=== PATIENT | male | born 1960 | race Hispanic/Latino ===

== ENCOUNTER 2017-06-25 15:46 | Inpatient (IN) | payer SELFPAY ==
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
[2017-06-25 16:46] LABS: Basophils % (Auto) 0.5 % (0.0-1.8); Eosinophils % (Auto) 0.3 % (0.0-4.3); Hematocrit 30.5 % (35.5-45.6); Hemoglobin 10.4 gm/dl (11.8-15.2); Mean Corpuscular HGB Conc 34 % (32-34); Mean Corpuscular Hemoglobin 32 pg (28-32); Mean Corpuscular Volume 93 fl (84-94); Platelet Count 219 K/mm3 (140-440); Red Blood Count 3.26 M/mm3 (3.65-5.03); Red Cell Distribution Width 13.5 % (13.2-15.2); White Blood Count 5.3 K/mm3 (4.5-11.0)
[2017-06-25 17:03] LABS: Anion Gap 14 mmol/L; BUN/Creatinine Ratio 16.66; Blood Urea Nitrogen 5 mg/dL (9-20); Calcium 8.1 mg/dL (8.4-10.2); Carbon Dioxide 28 mmol/L (22-30); Glucose 301 mg/dL (75-100); Potassium 3.2 mmol/L (3.6-5.0); Sodium 136 mmol/L (137-145)
[2017-06-25 17:10] LABS: Creatine Kinase 44 units/L (55-170)
[2017-06-25] MEDS ORDERED: D50W (25GM) IV PRN (20:10)
--- NOTE | 2017-06-25 21:26 | History and Physical Report ---
History of Present Illness Date of examination: 06/25/17 Date of admission: 06/25/17 18:41 Chief complaint: Bilateral lower extremities pain, severely elevated blood sugar. History of present illness: Patient is a 56-year-old homeless man who was having severe bilateral lower extremities pain. Burning in nature, moderate to severe in intensity. No known aggravating or relieving factor. A third republican called EMS who on arrival at the scene found the patient sitting on the curb. Blood sugar was found to be in the 300s. Patient was hypotensive with blood pressure in the 80s to the 90s. Feces were found on his clothes. Patient was brought to the emergency department where patient was found to be very unkempt with feces all over his body, blood sugar was the 300s. Patient was commenced on consistently wider diet, and iv hydration. Insulin sliding scale. Patient stated that he never had a history of diabetes before now. However his mother has a history of diabetes mellitus. Patient denies any fever or chills. No abdominal pain or nausea. no vomiting. Denies any chest pain, orthopnea paroxysmal nocturnal dyspnea.. Past History Past Medical History: hypertension Past Surgical History: No surgical history Social history: smoking, other (homeless). denies: alcohol abuse, prescription drug abuse Family history: diabetes Medications and Allergies Allergies Allergy/AdvReac Type Severity Reaction Status Date / Time No Known Allergies Allergy Verified 06/25/17 15:59 Home Medications Medication Instructions Recorded Confirmed Last Taken Type No Known Home Medications [No 06/25/17 06/25/17 Unknown History Reported Home Medications] Active Meds: Active Medications Aspirin (Aspirin) 325 mg PO QDAY GLADYS Dextrose (D50w (25gm)) 50 ml IV PRN PRN PRN Reason: Hypoglycemia Enoxaparin Sodium (Lovenox) 40 mg SUB-Q QDAY@2200 GLADYS Gabapentin (Neurontin) 100 mg PO Q8HR GLADYS Potassium Chloride (Kcl 10meq/100ml) 10 meq in 100 mls @ 100 mls/hr IV Q1H GLADYS Stop: 06/26/17 00:59 Insulin Aspart (Novolog) 0 units SUB-Q ACHS GLADYS PRN Reason: Protocol Insulin Detemir (Levemir) 10 units SUB-Q QHS GLADYS Review of systems Constitutional: Well Nouridhed and Well developed. Head: NC/ AT Eyes: Denies any visual impairments. No discharge from the eyes Nose: Denies any rhinorrhea or epistaxis Throats: Denies any post nasal drainage. Ears: Denies any hearing deficits Cardiovascular system: Denies any chest pain, shortness of breath, orthopnea, paroxysmal nocturnal dyspnea, or palpitation. Respiratory system: Denies any cough, difficulty breathing, wheezing, pleuritic chest pain, Gastrointestinal system: Denies any abdominal pain, nausea vomiting, hematemesis or melena. Neurological system: Denies any headache, slurred speech, facial droop, lateralizing weakness Genitalia system: Denies any dysuria, urinary frequency or urgency, urethral discharge Skin: No rashes, hyperpigmented spots. Hematological: Denies any cervical tenderness hemorrhages or petechia. Immunological: Denies any multiple septic spots, Lymphatic: Denies any generalized lymphadenopathy. Endocrine: Denies any polyuria, polydipsia, polyphagia. No heat or cold intolerance. Musculoskeletal system: Pain in both lower extremities. No swelling swelling. Psych: No visual, tactile, auditory or hallucination Exam - Constitutional Vitals: Temp Pulse Resp BP Pulse Ox 97.8 F 86 16 126/75 99 06/25/17 16:13 06/25/17 16:13 06/25/17 18:09 06/25/17 18:30 06/25/17 18:30 General appearance: Present: disheveled, malodorous - EENT Eyes: Present: PERRL - Neck Neck: Present: supple, normal ROM - Respiratory Respiratory effort: normal Respiratory: bilateral: CTA - Cardiovascular Heart Sounds: Present: S1 & S2. Absent: rub, click - Extremities Extremities: pulses symmetrical, No edema Peripheral Pulses: within normal limits - Abdominal General gastrointestinal: Present: soft, non-tender, non-distended, normal bowel sounds - Integumentary Integumentary: Present: clear, warm, dry - Musculoskeletal Musculoskeletal: gait normal, strength equal bilaterally - Psychiatric Psychiatric: appropriate mood/affect, intact judgment & insight - Neurologic Neurologic: CNII-XII intact, moves all extremities Results - Labs CBC & Chem 7: 06/25/17 16:27 06/25/17 16:27 Labs: Abnormal lab results 06/25/17 Range/Units 21:01 POC Glucose 302 H (70-105) - Imaging and Cardiology EKG: report reviewed Assessment and Plan - Diabetes mellitus new-onset - Diabetes peripheral neuropathy - Hypokalemia with a potassium of 3.2 - Anemia - Tobacco use disorder Plan Admit patient to MedSurg Commence worsening daughter 15 in our Obtain urinalysis Commence Sliding-scale insulin, with a basal insulin. Consistent collided diet Commence Gabapentin Supplement potassium Anemia workup Tobacco cessation counseling DVT prophylaxis with Lovenox, gentle accident with Pepcid Spent over 32 minutes during this admission in direct patient care, review of laboratory and radiological data, especially of management plan to the patient
[2017-06-25] MEDS: LOVENOX SUB-Q SCH (21:42)
[2017-06-25] MEDS: NEURONTIN PO SCH (21:42)
[2017-06-25] MEDS: NOVOLOG SUB-Q SCH (21:42)
[2017-06-25] MEDS: KCL 10MEQ/100ML 10 MEQ/100 ML BAG IV SCH (23:00)
[2017-06-25] MEDS: LEVEMIR SUB-Q SCH (23:06)
[2017-06-25] MEDS: ASPIRIN PO SCH (23:25)
[2017-06-26] MEDS: KCL 10MEQ/100ML 10 MEQ/100 ML BAG IV SCH ×2 (00:43→01:54)
[2017-06-26 01:05] LABS: INR 1.06 (0.87-1.13)
[2017-06-26 01:16] LABS: Alanine Aminotransferase 17 units/L (7-56); Albumin 3.3 g/dL (3.9-5); Albumin/Globulin Ratio 1.3 %; Alkaline Phosphatase 101 units/L (35-129); Anion Gap 16 mmol/L; BUN/Creatinine Ratio 13.33; Blood Urea Nitrogen 4 mg/dL (9-20); Calcium 8.8 mg/dL (8.4-10.2); Carbon Dioxide 28 mmol/L (22-30); Chloride 94.7 mmol/L (98-107); Glucose 114 mg/dL (75-100); Potassium 3.3 mmol/L (3.6-5.0); Sodium 135 mmol/L (137-145); Total Protein 5.8 g/dL (6.3-8.2)
[2017-06-26 03:10] LABS: Iron 69 ug/dL (49-181); Total Iron Binding Capacity 155 mcg/dL (250-450)
[2017-06-26] MEDS: NEURONTIN PO SCH ×3 (05:45→23:10)
[2017-06-26 06:15] LABS: Magnesium 1.6 mg/dL (1.7-2.3); Phosphorous 2.7 mg/dL (2.5-4.5)
[2017-06-26] MEDS: NOVOLOG SUB-Q SCH ×4 (07:27→22:46)
[2017-06-26] MEDS ORDERED: K-DUR PO ONE (09:00)
[2017-06-26] MEDS ORDERED: MAGNESIUM SULFATE IV ONE (09:00)
[2017-06-26] MEDS: ASPIRIN PO SCH (09:12)
[2017-06-26 11:22] LABS: Urine Drugs of Abuse Note Disclamer
[2017-06-26 11:38] LABS: Bacteria,Urine 1+ /HPF (Negative); Bilirubin,Urine NEG (Negative); Blood,Urine NEG (Negative); Ketones,Urine NEG (Negative); Leukocyte Esterase,Urine NEG (Negative); Mucus,Urine FEW /HPF; Nitrite,Urine NEG (Negative); Protein,Urine <15 mg/dL mg/dL (Negative); RBC,Urine < 1.0 /HPF (0.0-6.0); WBC,Urine < 1.0 /HPF (0.0-6.0)
--- NOTE | 2017-06-26 13:05 | Progress Note ---
Assessment and Plan Assessment and plan: Patient is a 56-year-old homeless man who was having severe bilateral lower extremities pain. Burning in nature, moderate to severe in intensity. No known aggravating or relieving factor. A third libertarian called EMS who on arrival at the scene found the patient sitting on the curb. Blood sugar was found to be in the 300s. Patient was hypotensive with blood pressure in the 80s to the 90s. Feces were found on his clothes. Patient was brought to the emergency department where patient was found to be very unkempt with feces all over his body, blood sugar was the 300s. Patient was commenced on consistently wider diet, and iv hydration. Insulin sliding scale. Patient stated that he never had a history of diabetes before now. However his mother has a history of diabetes mellitus. Patient denies any fever or chills. No abdominal pain or nausea. no vomiting. Denies any chest pain, orthopnea paroxysmal nocturnal dyspnea.. Diabetes mellitus poorly controlled-possible new onset -continue insuline therapy, await A1C, Diabetic education, No acei at this time secondary to Low BP Diabetic peripheral neuropathy Continue gabapentin Hypokalemia replace Magnesium REPLACE Anemia of chronic disease States he had colonoscopy at age 51, unsure of results, denies hx of CA. check iron studies Tobacco dependence 15 minutes of counselling provided Severe protein calorie malnutrition Nutrition consult Anorexic Nutrition consult as noted above DVT/GI prophy Case management for placement in AM History Interval history: Patient seen and examined in no acute distress reports remarkable improvement and bilateral upper extremity pain. Denies any nausea vomiting or diarrhea Hospitalist Physical - Physical exam Narrative exam: VITAL SIGNS: Reviewed. GENERAL: The patient appeared markedly malnourished and anorexic.. Vital signs as documented. HEAD: No signs of head trauma. Temporal wasting EYES: Pupils are equal. Extraocular motions intact. EARS: Hearing grossly intact. MOUTH: Oropharynx is normal. NECK: No adenopathy, no JVD. CHEST: Chest with clear breath sounds bilaterally. No wheezes, rales, or rhonchi. CARDIAC: Regular rate and rhythm. S1 and S2, without murmurs, gallops, or rubs. VASCULAR: No Edema. Peripheral pulses normal and equal in all extremities. ABDOMEN: Soft, without detectable tenderness. No sign of distention. No rebound or guarding, and no masses palpated. Bowel Sounds normal. MUSCULOSKELETAL: Good range of motion of all major joints. Extremities without clubbing, cyanosis or edema. NEUROLOGIC EXAM: Alert and oriented x 3. No focal sensory or strength deficits. Speech normal. Follows commands. PSYCHIATRIC: Mood normal. SKIN: Chronic healed punctated wounds. - Constitutional Vitals: Temp Pulse Resp BP Pulse Ox 97.8 F 70 18 97/52 100 06/26/17 08:00 06/26/17 08:00 06/26/17 08:00 06/26/17 08:00 06/26/17 08:00 General appearance: Present: disheveled, malodorous Results - Labs CBC & Chem 7: 06/25/17 16:27 06/26/17 00:13 Labs: Laboratory Last Values WBC 5.3 K/mm3 (4.5-11.0) 06/25/17 16:27 RBC 3.26 M/mm3 (3.65-5.03) L 06/25/17 16:27 Hgb 10.4 gm/dl (11.8-15.2) L 06/25/17 16:27 Hct 30.5 % (35.5-45.6) L 06/25/17 16:27 MCV 93 fl (84-94) 06/25/17 16:27 MCH 32 pg (28-32) 06/25/17 16:27 MCHC 34 % (32-34) 06/25/17 16:27 RDW 13.5 % (13.2-15.2) 06/25/17 16:27 Plt Count 219 K/mm3 (140-440) 06/25/17 16:27 Lymph % (Auto) 32.9 % (13.4-35.0) 06/25/17 16:27 [place] % (Auto) 7.6 % (0.0-7.3) H 06/25/17 16:27 Eos % (Auto) 0.3 % (0.0-4.3) 06/25/17 16:27 Baso % (Auto) 0.5 % (0.0-1.8) 06/25/17 16:27 Lymph # 1.7 K/mm3 (1.2-5.4) 06/25/17 16:27 [place] # 0.4 K/mm3 (0.0-0.8) 06/25/17 16:27 Eos # 0.0 K/mm3 (0.0-0.4) 06/25/17 16:27 Baso # 0.0 K/mm3 (0.0-0.1) 06/25/17 16:27 Seg Neutrophils % 58.7 % (40.0-70.0) 06/25/17 16:27 Seg Neutrophils # 3.1 K/mm3 (1.8-7.7) 06/25/17 16:27 PT 14.4 Sec. (12.2-14.9) 06/26/17 00:13 INR 1.06 (0.87-1.13) 06/26/17 00:13 VBG pH 7.422 (7.320-7.420) H 06/25/17 16:27 Sodium 135 mmol/L (137-145) L 06/26/17 00:13 Potassium 3.3 mmol/L (3.6-5.0) L 06/26/17 00:13 Chloride 94.7 mmol/L (98-107) L 06/26/17 00:13 Carbon Dioxide 28 mmol/L (22-30) 06/26/17 00:13 Anion Gap 16 mmol/L 06/26/17 00:13 BUN 4 mg/dL (9-20) L 06/26/17 00:13 Creatinine 0.3 mg/dL (0.8-1.5) L 06/26/17 00:13 Estimated GFR > 60 ml/min 06/26/17 00:13 BUN/Creatinine Ratio 13.33 % 06/26/17 00:13 Glucose 114 mg/dL (75-100) H 06/26/17 00:13 POC Glucose 232 (70-105) H 06/26/17 11:26 Hemoglobin A1c 11.2 % (4-6) H 06/25/17 16:27 Lactic Acid 2.00 mmol/L (0.7-2.0) 06/26/17 08:39 Calcium 8.8 mg/dL (8.4-10.2) 06/26/17 00:13 Phosphorus 2.70 mg/dL (2.5-4.5) 06/26/17 05:22 Magnesium 1.60 mg/dL (1.7-2.3) L 06/26/17 05:22 Iron 69 ug/dL (49-181) 06/26/17 00:13 TIBC 155 mcg/dL (250-450) L 06/26/17 00:13 Total Bilirubin 0.40 mg/dL (0.1-1.2) 06/26/17 00:13 AST 16 units/L (5-40) 06/26/17 00:13 ALT 17 units/L (7-56) 06/26/17 00:13 Alkaline Phosphatase 101 units/L (35-129) 06/26/17 00:13 Total Creatine Kinase 44 units/L (55-170) L 06/25/17 16:27 CK-MB (CK-2) 2.0 ng/mL (0.0-4.0) 06/25/17 16:27 CK-MB (CK-2) Rel Index 4.5 (0-4) H 06/25/17 16:27 Troponin T < 0.010 ng/mL (0.00-0.029) 06/25/17 16:27 Total Protein 5.8 g/dL (6.3-8.2) L 06/26/17 00:13 Albumin 3.3 g/dL (3.9-5) L 06/26/17 00:13 Albumin/Globulin Ratio 1.3 % 06/26/17 00:13 Vitamin B12 248.6 pg/mL (211-911) 06/26/17 00:13 Urine Color Yellow (Yellow) 06/26/17 11:10 Urine Turbidity Clear (Clear) 06/26/17 11:10 Urine pH 6.0 (5.0-7.0) 06/26/17 11:[address] 1.010 (1.003-1.030) 06/26/17 11:10 Urine Protein <15 mg/dl mg/dL (Negative) 06/26/17 11:10 Urine Glucose (UA) >=500 mg/dL (Negative) 06/26/17 11:10 Urine Ketones Neg mg/dL (Negative) 06/26/17 11:10 Urine Blood Neg (Negative) 06/26/17 11:10 Urine Nitrite Neg (Negative) 06/26/17 11:10 Urine Bilirubin Neg (Negative) 06/26/17 11:10 Urine Urobilinogen 4.0 mg/dL (<2.0) 06/26/17 11:10 Ur Leukocyte Esterase Neg (Negative) 06/26/17 11:10 Urine WBC (Auto) < 1.0 /HPF (0.0-6.0) 06/26/17 11:10 Urine RBC (Auto) < 1.0 /HPF (0.0-6.0) 06/26/17 11:10 Urine Bacteria (Auto) 1+ /HPF (Negative) 06/26/17 11:10 Urine Mucus Few /HPF 06/26/17 11:10 Urine Opiates Screen Presumptive negative 06/26/17 11:10 Urine Methadone Screen Presumptive negative 06/26/17 11:10 Ur Barbiturates Screen Presumptive negative 06/26/17 11:10 Ur Phencyclidine Scrn Presumptive negative 06/26/17 11:10 Ur Amphetamines Screen Presumptive negative 06/26/17 11:10 U Benzodiazepines Scrn Presumptive negative 06/26/17 11:10 Urine Cocaine Screen Presumptive negative 06/26/17 11:10 U Marijuana (THC) Screen Presumptive negative 06/26/17 11:10 Drugs of Abuse Note Disclamer 06/26/17 11:10 Plasma/Serum Alcohol < 0.01 gm% (0-0.07) 06/25/17 16:27
[2017-06-26 19:13] LABS: Basophils % (Auto) 0.6 % (0.0-1.8); Eosinophils % (Auto) 1.6 % (0.0-4.3); Hematocrit 30.4 % (35.5-45.6); Hemoglobin 10.4 gm/dl (11.8-15.2); Mean Corpuscular HGB Conc 34 % (32-34); Mean Corpuscular Hemoglobin 32 pg (28-32); Mean Corpuscular Volume 94 fl (84-94); Platelet Count 217 K/mm3 (140-440); Red Blood Count 3.22 M/mm3 (3.65-5.03); White Blood Count 4.7 K/mm3 (4.5-11.0)
[2017-06-26 19:30] LABS: INR 1.06 (0.87-1.13)
[2017-06-26 19:38] LABS: Alanine Aminotransferase 15 units/L (7-56); Albumin 3.2 g/dL (3.9-5); Albumin/Globulin Ratio 1.4 %; Alkaline Phosphatase 92 units/L (35-129); Anion Gap 15 mmol/L; Blood Urea Nitrogen 3 mg/dL (9-20); Calcium 8.6 mg/dL (8.4-10.2); Carbon Dioxide 28 mmol/L (22-30); Chloride 99.8 mmol/L (98-107); Glucose 152 mg/dL (75-100); Sodium 139 mmol/L (137-145); Total Protein 5.5 g/dL (6.3-8.2)
[2017-06-26 19:57] LABS: Potassium 4.2 mmol/L (3.6-5.0)
[2017-06-26] MEDS: LEVEMIR SUB-Q SCH (23:10)
[2017-06-26] MEDS: LOVENOX SUB-Q SCH (23:11)
--- NOTE | 2017-06-27 03:46 | Admit Criteria Form ---
Admission Criteria Documentation: DIABETES Clinical Indications for Admission to Inpatient Care (Place 'X' for any and all applicable criteria): Admission is indicated by presence of ALL (if I & II) or ANY ONE (if III or IV) of the following (1)(2)(3)(4): [X]I. Diabetes is uncontrolled as indicated by ANY ONE of the following: [ ]a) Diabetic ketoacidosis as indicated by ALL of the following (8): [ ]i) Hyperglycemia (eg, plasma glucose greater than 200 mg/ dL (11.1 mmol/L)) [ ]ii) Acidosis (eg, arterial pH less than 7.30, serum bicarbonate level less than 15 mEq/L (mmol/L)) [ ]iii) Moderate ketonuria or ketonemia [ ]b) Hyperglycemic hyperosmolar state as indicated by ALL of the following(9)(10): [ ]i) Neurologic dysfunction (eg, stupor, coma, hemiparesis , seizure)(13) [ ]ii) Plasma glucose greater than 600 mg/dL (33.3 mmol/L) [ ]iii) Serum osmolality greater than 320 mOsm/kg (mmol/kg) [X]c) Severe signs or symptoms secondary to hyperglycemia indicated by ANY ONE of the following: [ ]i) Altered mental status(10) [X]ii) Significant hypovolemia or dehydration [ ]iii) Intractable nausea or vomiting [ ]iv) Unexplained fever or severe infection [ ]v) Severe electrolyte abnormality (eg, hypokalemia, hyperkalemia, hypernatremia) [X]II. Management at other levels of care (Also use Diabetes: Observation Care as appropriate) is not feasible because of ANY ONE of the following: [ ]a) Condition was not adequately corrected with treatment at other levels of care. [X]b) Treatment at other levels of care is not appropriate because of condition severity (eg, hyperosmolar coma). [ ]III. Contraindications and/or Inappropriate clinical situations for Observational Care in patients with Diabetes, when ANY ONE of the following is required: [ ]a) Patient require specific diagnostic workup or therapeutic intervention 22 [ ]b) Patient with abnormal vital signs or altered mental status 23 [ ]IV. General contraindications and/or Inappropriate clinical situations for Observational Care in patients with Diabetes, when ANY ONE of the following is required: [ ]a) Prediction of prolongation of LOS based on ANY ONE of the following may be considered as a contraindication for observational care 2, 3, 4, 5, 6, 7, 8, 9, 10, 11 [ ]i) Age > 65 yrs. [ ]ii) Patient arriving by ambulance [ ]iii) Patient with high acuity [ ]iv) Patient requiring vital sign monitoring [ ]v) Patient on IV medication [ ]b) Systolic blood pressures 180mmHg 3,12 [ ]c) Patient with altered mental status including delirium and other alteration of consciousness, (3) [ ]d) Patient whose discharge disposition will be to a [facility] home or rehabilitation home should not be managed in Emergency Department Observation Unit. CMS rule requires 3 days hospital stay before such placement.3,13 [ ]e) Patient with failure to thrive due to broad array of etiologies 3,16,17 [ ]f) Inability to ambulate 3,14 Extended stay beyond goal length of stay may be needed for(3)(20): [ ]a) Treatment of precipitating causes [ ]b) Development of hypoglycemia [ ]c) Complications of treatment [ ]d) Complications of decompensated diabetes (eg, acute gastric dilatation, persistent metabolic or neurologic derangement) [ ]e) Active Comorbidities [ ]f) Older patients( 65 years or older) The original [employer] content created by [employer] has been revised. The portions of the content which have been revised are identified through the use of italic text or in bold,and [facility] has neither reviewed nor approved the modified material. All other unmodified content is copyright [employer]. Please see references footnoted in the original [facility] edition 2016 Admission Criteria Met: Yes
[2017-06-27] MEDS: NEURONTIN PO SCH ×2 (05:51→15:07)
--- NOTE | 2017-06-27 07:27 | Discharge Summary ---
Providers - Providers Date of Admission: 06/25/17 18:41 Date of discharge: 06/27/17 Attending physician: BERNABE DUNAWAY MD 06/26/17 13:09 Consult to Dietitian/Nutrition [CONS] Routine Physician Instructions: malnurished, new diagnosis of DM Reason For Exam: Reason for Consult: Diet education Primary care physician: [employer] Hospitalization Reason for admission: Uncontrolled DM Condition: Stable Hospital course: Patient is a 56-year-old homeless man who was having severe bilateral lower extremities pain. Burning in nature, moderate to severe in intensity. No known aggravating or relieving factor. A third green party called EMS who on arrival at the scene found the patient sitting on the curb. Blood sugar was found to be in the 300s. Patient was hypotensive with blood pressure in the 80s to the 90s. Feces were found on his clothes. Patient was brought to the emergency department where patient was found to be very unkempt with feces all over his body, blood sugar was the 300s. Patient was commenced on consistently wider diet, and iv hydration. Insulin sliding scale. Patient stated that he never had a history of diabetes before now. However his mother has a history of diabetes mellitus. Patient denies any fever or chills. No abdominal pain or nausea. no vomiting. Denies any chest pain, orthopnea paroxysmal nocturnal dyspnea. Patient is on insulin therapy and once he returned home was greater than 11. His electrolytes were replaced with did have extensive discussion about tobacco cessation is currently stable at this time for discharge we did discuss extensively diabetic management side effects of medications and also yearly required exams. He verbalized understanding. I did also recommend a follow-up with GI once established we will able to set him up with a mcc. Discharge diagnosis: * New onset diabetes mellitus * Diabetic peripheral neuropathy * Hypokalemia * HypoMagnesium * Anemia of chronic disease * Tobacco dependence * Severe protein calorie malnutrition * Anorexic Disposition: [id number] TO HOME OR SELFCARE Time spent for discharge: 35 mins Core Measure Documentation - Palliative Care Palliative Care/ Comfort Measures: Not Applicable - Core Measures Any of the following diagnoses?: none - VTE Discharge Requirements Deep Vein Thrombosis/Pulmonary Embolism Present on Admission: No Exam - Physical Exam Narrative exam: VITAL SIGNS: Reviewed. GENERAL: The patient appeared markedly malnourished and anorexic.. Vital signs as documented. HEAD: No signs of head trauma. Temporal wasting EYES: Pupils are equal. Extraocular motions intact. EARS: Hearing grossly intact. MOUTH: Oropharynx is normal. NECK: No adenopathy, no JVD. CHEST: Chest with clear breath sounds bilaterally. No wheezes, rales, or rhonchi. CARDIAC: Regular rate and rhythm. S1 and S2, without murmurs, gallops, or rubs. VASCULAR: No Edema. Peripheral pulses normal and equal in all extremities. ABDOMEN: Soft, without detectable tenderness. No sign of distention. No rebound or guarding, and no masses palpated. Bowel Sounds normal. MUSCULOSKELETAL: Good range of motion of all major joints. Extremities without clubbing, cyanosis or edema. NEUROLOGIC EXAM: Alert and oriented x 3. No focal sensory or strength deficits. Speech normal. Follows commands. PSYCHIATRIC: Mood normal. SKIN: Chronic healed punctated wounds. - Constitutional Vitals: Temp Pulse Resp BP Pulse Ox 98 F 80 16 100/63 99 06/26/17 23:44 06/26/17 23:44 06/26/17 23:44 06/26/17 23:44 06/26/17 23:44 Plan Activity: advance as tolerated, fall precautions Diet: diabetic Special Instructions: record daily BP diary, record blood sugar diary, smoking cessation Follow up with: PRIMARY CARE, [Primary Care Provider] - 3-5 Days Prescriptions: Gabapentin [Neurontin] 100 mg PO Q8HR #90 capsule Insulin NPH/Regular [Novolin 70/30] 8 unit SQ BIDDIAB 30 Days Other Discharge Orders: Glucometer (Amb) Location: Determined By Patient Glucometer supplies[Amb] Location: Determined By Patient
[2017-06-27] MEDS: NOVOLOG SUB-Q SCH ×2 (07:30→11:30)
[2017-06-27 08:06] VITALS: BP 117/64
[2017-06-27] MEDS: ASPIRIN PO SCH (09:32)
== END 2017-06-27 15:13 | disposition home or self-care (01) | DRG 637 ==
LOC: ED 15:46 → 3A 18:41
PROVIDERS: ADMIT Family Medicine; ATTEND Internal Medicine
DX: E11.65 Type 2 diabetes mellitus with hyperglycemia (principal); E43 Unspecified severe protein-calorie malnutrition; Z68.1 Body mass index [BMI] 19.9 or less, adult; E11.42 Type 2 diabetes mellitus with diabetic polyneuropathy; I10 Essential (primary) hypertension; F17.210 Nicotine dependence, cigarettes, uncomplicated; E87.6 Hypokalemia; D63.8 Anemia in other chronic diseases classified elsewhere; E83.42 Hypomagnesemia; Z71.6 Tobacco abuse counseling; Z59.0 Homelessness; Z83.3 Family history of diabetes mellitus
CPT/HCPCS: 36415; 80048; 80053; 80307; 80320; 81001; 82140; 82550; 82553; 82607; 82747; 82805; 82962; 83036; 83550; 83735; 84100; 84484; 85025; 85610; G0480; J1650; J1815; J1818; J3475; J3480